=== PATIENT | female | born 1945 | race Caucasian/White ===

== ENCOUNTER 2021-03-06 03:36 | Outpatient (CLI) | payer MEDICARE, MEDICAID, SELFPAY ==
[2021-03-06 12:58] LABS: Abs Immature Grans 0.03 10^3/uL (0.0-0.06); Absolute Basophil Count 0.05 10^3/uL (0.0-0.2); Absolute Eosinophil Count 0.11 10^3/uL (0.0-0.7); Absolute Lymphocyte Count 0.64 10^3/uL (1.2-3.4); Absolute Monocyte Count 1.04 10^3/uL (0.1-0.8); Absolute Neutrophil Count 5.09 10^3/uL (1.2-6.7); Basophils % 0.7; Eosinophils % 1.6; HCT 35.9 % (36.0-46.0); HGB 11.5 g/dL (11.2-15.7); Immature Grans % 0.4; Lymphocytes % 9.2; MCH 32.5 pg (27.0-33.0); MCV 101.4 fL (80-95); MPV 9.1 fL (8.0-11.0); Monocytes % 14.9; Neutrophils % 73.2; Nucleated RBC 0 %; Platelet Count 277 10^3/uL (130-400); RBC 3.54 10^6/uL (3.93-5.22); RDW 15.1 % (11.7-14.6); RDW-SD 56.8 fL; WBC 6.96 10^3/uL (4.4-10.8)
[2021-03-06 13:24] LABS: ALT 16 U/L (14-59); AST 14 U/L (15-37); Albumin 2.9 g/dL (3.4-5.0); Alkaline Phosphatase 64 U/L (46-116); Anion Gap 9.3 mmol/L (3-11); BUN 16 mg/dL (7-18); Bilirubin, Total 0.5 mg/dL (0.2-1.0); CO2 24.7 mmol/L (21.0-32.0); CREATININE 0.7 mg/dL (0.55-1.02); Calcium 9.3 mg/dL (8.5-10.1); Chloride 110 mmol/L (98-107); Glucose 100 mg/dL (74-106); Potassium 3.3 mmol/L (3.5-5.1); Sodium 144 mmol/L (136-145); T4 11.9 ug/mL (4.7-13.3); TSH 2.53 uIU/mL (0.36-3.74); Total Protein 5.9 g/dL (6.4-8.2)
[2021-03-07 16:35] LABS: Cancer Ag 15-3 48 U/mL (<30)
== END 2021-03-06 03:37 | disposition home or self-care (01) ==
PROVIDERS: PCP Nurse Practitioner Family; Visit Provider Internal Medicine Hematology & Oncology
DX: D89.89 Other specified disorders involving the immune mechanism, not elsewhere classified (principal); Z79.899 Other long term (current) drug therapy; C50.611 Malignant neoplasm of axillary tail of right female breast; Z17.1 Estrogen receptor negative status [ER-]; C50.919 Malignant neoplasm of unspecified site of unspecified female breast
CPT/HCPCS: 36415; 80053; 86304; 84436; 84443; 85025; 86300

== ENCOUNTER 2021-04-03 09:30 | Outpatient (RCR) | payer MEDICARE, MEDICAID, SELFPAY ==
[2021-03-13] MEDS: Normal Saline Flush 10 ML SYR IVP (12:44)
[2021-03-13 12:55] LABS: Abs Immature Grans 0.03 10^3/uL (0.0-0.06); Absolute Basophil Count 0.05 10^3/uL (0.0-0.2); Absolute Eosinophil Count 0.15 10^3/uL (0.0-0.7); Absolute Lymphocyte Count 0.55 10^3/uL (1.2-3.4); Absolute Monocyte Count 0.45 10^3/uL (0.1-0.8); Absolute Neutrophil Count 2.44 10^3/uL (1.2-6.7); Basophils % 1.4; Eosinophils % 4.1; HCT 29.4 % (36.0-46.0); HGB 9.7 g/dL (11.2-15.7); Immature Grans % 0.8; MCH 33.4 pg (27.0-33.0); MCV 101.4 fL (80-95); MPV 10.2 fL (8.0-11.0); Monocytes % 12.3; Neutrophils % 66.4; Nucleated RBC 0 %; Platelet Count 241 10^3/uL (130-400); RDW 14.6 % (11.7-14.6); RDW-SD 54.9 fL; WBC 3.67 10^3/uL (4.4-10.8)
[2021-03-13 13:18] LABS: ALT 15 U/L (14-59); AST 17 U/L (15-37); Albumin 2.8 g/dL (3.4-5.0); Alkaline Phosphatase 62 U/L (46-116); Anion Gap 7.6 mmol/L (3-11); BUN 21 mg/dL (7-18); Bilirubin, Total 0.4 mg/dL (0.2-1.0); CO2 28.4 mmol/L (21.0-32.0); CREATININE 0.7 mg/dL (0.55-1.02); Calcium 9.6 mg/dL (8.5-10.1); Chloride 108 mmol/L (98-107); Glucose 100 mg/dL (74-106); Potassium 3.3 mmol/L (3.5-5.1); Sodium 144 mmol/L (136-145); Total Protein 5.5 g/dL (6.4-8.2)
[2021-03-13 13:28] LABS: T4 11.5 ug/mL (4.7-13.3)
[2021-03-14 16:35] LABS: Cancer Ag 15-3 51 U/mL (<30)
[2021-03-20 12:44] LABS: Abs Immature Grans 0.01 10^3/uL (0.0-0.06); Absolute Basophil Count 0.03 10^3/uL (0.0-0.2); Absolute Eosinophil Count 0.12 10^3/uL (0.0-0.7); Absolute Lymphocyte Count 0.45 10^3/uL (1.2-3.4); Absolute Monocyte Count 0.28 10^3/uL (0.1-0.8); Absolute Neutrophil Count 0.94 10^3/uL (1.2-6.7); Basophils % 1.6; Eosinophils % 6.6; HCT 29.8 % (36.0-46.0); HGB 9.9 g/dL (11.2-15.7); Immature Grans % 0.5; Lymphocytes % 24.6; MCH 33.2 pg (27.0-33.0); MCHC 33.2 % (32.0-36.0); MPV 9.9 fL (8.0-11.0); Monocytes % 15.3; Neutrophils % 51.4; Nucleated RBC 0 %; RBC 2.98 10^6/uL (3.93-5.22); RDW 14.1 % (11.7-14.6); RDW-SD 51.4 fL
[2021-03-20] MEDS: Normal Saline Flush 10 ML SYR IVP (12:48)
[2021-03-20 13:03] LABS: ALT 13 U/L (14-59); AST 16 U/L (15-37); Albumin 2.8 g/dL (3.4-5.0); Alkaline Phosphatase 58 U/L (46-116); Anion Gap 9.9 mmol/L (3-11); BUN 15 mg/dL (7-18); Bilirubin, Total 0.4 mg/dL (0.2-1.0); CO2 26.1 mmol/L (21.0-32.0); CREATININE 0.6 mg/dL (0.55-1.02); Chloride 109 mmol/L (98-107); Glucose 100 mg/dL (74-106); Potassium 3.1 mmol/L (3.5-5.1); Sodium 145 mmol/L (136-145); Total Protein 5.7 g/dL (6.4-8.2)
[2021-03-20 13:07] LABS: Diff Comment Agrees w/ Instrument; Hypochromasia 2+; Macrocytosis 2+; Polychromasia Present
[2021-03-20 13:08] LABS: Poikilocytes 2+
[2021-03-20 13:12] LABS: WBC 1.83 10^3/uL (4.4-10.8)
[2021-04-03] MEDS: Normal Saline Flush 10 ML SYR IVP (09:31)
[2021-04-03 09:46] LABS: Abs Immature Grans 0.06 10^3/uL (0.0-0.06); Absolute Basophil Count 0.07 10^3/uL (0.0-0.2); Absolute Eosinophil Count 0.15 10^3/uL (0.0-0.7); Absolute Neutrophil Count 6.23 10^3/uL (1.2-6.7); Basophils % 0.8; Eosinophils % 1.7; HCT 31.7 % (36.0-46.0); HGB 10.2 g/dL (11.2-15.7); Immature Grans % 0.7; MCH 32.6 pg (27.0-33.0); MCHC 32.2 % (32.0-36.0); MCV 101.3 fL (80-95); MPV 9.4 fL (8.0-11.0); Monocytes % 17.2; Neutrophils % 71.6; Nucleated RBC 0 %; Platelet Count 311 10^3/uL (130-400); RBC 3.13 10^6/uL (3.93-5.22); RDW 15.6 % (11.7-14.6); RDW-SD 57.1 fL; WBC 8.71 10^3/uL (4.4-10.8)
[2021-04-03 10:08] LABS: ALT 16 U/L (14-59); AST 16 U/L (15-37); Albumin 3.1 g/dL (3.4-5.0); Alkaline Phosphatase 68 U/L (46-116); Anion Gap 10.1 mmol/L (3-11); BUN 19 mg/dL (7-18); Bilirubin, Total 0.4 mg/dL (0.2-1.0); CO2 23.9 mmol/L (21.0-32.0); CREATININE 0.8 mg/dL (0.55-1.02); Calcium 9.6 mg/dL (8.5-10.1); Chloride 109 mmol/L (98-107); Glucose 89 mg/dL (74-106); Sodium 143 mmol/L (136-145); T4 12.4 ug/mL (4.7-13.3); TSH 3.81 uIU/mL (0.36-3.74); Total Protein 6.1 g/dL (6.4-8.2)
[2021-04-04 16:07] LABS: Cancer Ag 15-3 58 U/mL (<30)
== END 2021-04-08 23:59 | disposition home or self-care (01) ==
LOC: INF 09:30
PROVIDERS: PCP Nurse Practitioner Family; Visit Provider Internal Medicine Hematology & Oncology
DX: C50.611 Malignant neoplasm of axillary tail of right female breast (principal); Z17.1 Estrogen receptor negative status [ER-]; Z45.2 Encounter for adjustment and management of vascular access device; C50.919 Malignant neoplasm of unspecified site of unspecified female breast; Z79.899 Other long term (current) drug therapy; D89.89 Other specified disorders involving the immune mechanism, not elsewhere classified
CPT/HCPCS: 36591; 80053; 86304; 84436; 84443; 85025; 86300

== ENCOUNTER 2021-04-10 02:48 | Outpatient (RCR) | payer MEDICARE, MEDICAID, SELFPAY ==
[2021-04-10] MEDS: Normal Saline Flush 10 ML SYR IVP (08:50)
[2021-04-10 08:57] LABS: Abs Immature Grans 0.04 10^3/uL (0.0-0.06); Absolute Basophil Count 0.05 10^3/uL (0.0-0.2); Absolute Eosinophil Count 0.33 10^3/uL (0.0-0.7); Absolute Lymphocyte Count 0.47 10^3/uL (1.2-3.4); Absolute Monocyte Count 0.48 10^3/uL (0.1-0.8); Absolute Neutrophil Count 2.94 10^3/uL (1.2-6.7); Basophils % 1.2; Eosinophils % 7.7; HCT 29.1 % (36.0-46.0); HGB 9.6 g/dL (11.2-15.7); Immature Grans % 0.9; Lymphocytes % 10.9; MCH 32.7 pg (27.0-33.0); MPV 10.3 fL (8.0-11.0); Monocytes % 11.1; Neutrophils % 68.2; Nucleated RBC 0 %; Platelet Count 258 10^3/uL (130-400); RBC 2.94 10^6/uL (3.93-5.22); RDW 14.7 % (11.7-14.6); RDW-SD 53.7 fL; WBC 4.31 10^3/uL (4.4-10.8)
[2021-04-10 09:22] LABS: ALT 12 U/L (14-59); AST 15 U/L (15-37); Alkaline Phosphatase 62 U/L (46-116); Anion Gap 10.2 mmol/L (3-11); BUN 24 mg/dL (7-18); Bilirubin, Total 0.3 mg/dL (0.2-1.0); CO2 23.8 mmol/L (21.0-32.0); CREATININE 0.9 mg/dL (0.55-1.02); Calcium 9.5 mg/dL (8.5-10.1); Chloride 108 mmol/L (98-107); Glucose 100 mg/dL (74-106); Potassium 4.4 mmol/L (3.5-5.1); Sodium 142 mmol/L (136-145); TSH 2.89 uIU/mL (0.36-3.74); Total Protein 5.8 g/dL (6.4-8.2)
[2021-04-10 09:43] LABS: T4 10.2 ug/mL (4.7-13.3)
[2021-04-11 12:52] LABS: Cancer Ag 15-3 56 U/mL (<30)
== END 2021-05-08 23:59 | disposition home or self-care (01) ==
LOC: INF 02:48
PROVIDERS: PCP Nurse Practitioner Family; Visit Provider Internal Medicine Hematology & Oncology
DX: D89.89 Other specified disorders involving the immune mechanism, not elsewhere classified (principal); C50.611 Malignant neoplasm of axillary tail of right female breast; Z45.2 Encounter for adjustment and management of vascular access device
CPT/HCPCS: 36591; 80053; 86304; 84436; 84443; 85025; 86300